=== PATIENT | male | born 1995 | race Caucasian/White ===

== ENCOUNTER 2023-11-30 18:35 | Emergency (ER) | payer BC, OTHER ==
[~2023-11-30] VITALS: Ht 177.8 cm; Wt 68.0 kg
[2023-11-30 20:47] VITALS: BP 132/85; O2SAT 100
== END 2023-11-30 20:34 | disposition home or self-care (01) ==
LOC: ER 18:38
DX: S90.32XA Contusion of left foot, initial encounter (principal); W17.89XA Other fall from one level to another, initial encounter; Y93.89 Activity, other specified; Y92.89 Other specified places as the place of occurrence of the external cause; Y99.8 Other external cause status
CPT/HCPCS: 73620; A4606; A4663